=== PATIENT | male | born 1985 | race Caucasian/White ===

== ENCOUNTER 2018-01-27 18:13 | Emergency (ER) | payer OTHER ==
[2018-01-27] MEDS ORDERED: LIDOCAINE 1% MPF 5 ML VIAL ONE (20:05)
--- NOTE | 2018-01-27 20:37 | EDPHYS ---
Physician Documentation [facility] Name: Nahid Leroy Age: 32 yrs Sex: Male : 1985 Arrival Date: 01/27/2018 Time: 18:13 Bed External Waiting Private MD: None, None ED Physician Chidi Mcghee HPI: 01/27 20:12 This 32 yrs old Male presents to ER via Ambulatory with complaints of Finger jr8 Laceration. 20:12 The patient or guardian reports a laceration, irregular, 3 cm(s). The complaints affect jr8 the PIP of right index finger. Context: The problem was sustained at home, resulted from cutting object with knife. Onset: The symptoms/episode began/occurred acutely, today. Modifying factors: The symptoms are alleviated by nothing, the symptoms are aggravated by movement. Associated signs and symptoms: The patient has no apparent associated signs or symptoms. Severity of symptoms: At their worst the symptoms were mild, in the emergency department the symptoms are unchanged. The patient has not experienced similar symptoms in the past. The patient has not recently seen a physician. was trying to cut object and accidently cut index finger . Historical: - Allergies: 18:31 No Known Allergies; lk1 - PMHx: 18:31 None; lk1 - PSHx: 18:31 Tonsillectomy; lk1 - Immunization history:: Adult Immunizations up to date, Last tetanus immunization: unknown. - Social history:: Smoking status: Patient/guardian denies using tobacco. - Ebola Screening: : No symptoms or risks identified at this time. ROS: 20:12 Eyes: Negative for injury, pain, redness, and discharge, ENT: Negative for injury, jr8 pain, and discharge, Neck: Negative for injury, pain, and swelling, Cardiovascular: Negative for chest pain, palpitations, and edema, Respiratory: Negative for shortness of breath, cough, wheezing, and pleuritic chest pain, Abdomen/GI: Negative for abdominal pain, nausea, vomiting, diarrhea, and constipation, Back: Negative for injury and pain, Skin: Negative for injury, rash, and discoloration, Neuro: Negative for headache, weakness, numbness, tingling, and seizure. 20:12 MS/extremity: Positive for laceration. Exam: 20:12 Cardiovascular: Regular rate and rhythm with a normal S1 and S2. No gallops, murmurs, jr8 or rubs. Normal PMI, no JVD. No pulse deficits. Respiratory: Lungs have equal breath sounds bilaterally, clear to auscultation and percussion. No rales, rhonchi or wheezes noted. No increased work of breathing, no retractions or nasal flaring. MS/ Extremity: Pulses equal, no cyanosis. Neurovascular intact. Full, normal range of motion. Neuro: Awake and alert, GCS 15, oriented to person, place, time, and situation. Cranial nerves II-XII grossly intact. Motor strength 5/5 in all extremities. Sensory grossly intact. Cerebellar exam normal. Normal gait. 20:12 Skin: injury, laceration(s), the wound is approximately 3 cm(s), with a depth of .5 cm(s), of the PIP of right index finger, that can be described as no foreign body, irregular, without bleeding. Vital Signs: 18:32 BP 148 / 93; Pulse 90; Resp 15; Temp 98.0(TE); Pulse Ox 98% on R/A; Weight 124.74 kg lk1 (R); Height 6 ft. 2 in. (187.96 cm) (R); Pain 0/10; 20:52 BP 138 / 89; Pulse 73; Resp 18; Temp 97.6; Pulse Ox 97% on R/A; Pain 0/10; fu 18:32 Body Mass Index 35.31 (124.74 kg, 187.96 cm) lk1 Laceration: 20:33 Wound Repair of 3cm ( 1.2in ) subcutaneous laceration to PIP of right index finger. jr8 Irregularly shaped.. Minimal bleeding noted.. Distal neuro/vascular/tendon intact. Anesthesia: Digital block administered with 3 mls of 1% lidocaine. Wound prep: Extensive cleansing with betadine, Wound irrigation with saline, Wound explored extensively. Skin closed with 6 4-0 Prolene using interrupted sutures and sterile technique. Patient tolerated well. MDM: 19:34 Patient medically screened. jr8 20:37 Data reviewed: vital signs, nurses notes, and as a result, I will discharge patient. jr8 Data interpreted: Pulse oximetry: on room air is 98 %. Interpretation: normal. Counseling: I had a detailed discussion with the patient and/or guardian regarding: the historical points, exam findings, and any diagnostic results supporting the discharge/admit diagnosis, the need for outpatient follow up, a family practitioner, to return to the emergency department if symptoms worsen or persist or if there are any questions or concerns that arise at home. 01/27 20:01 Order name: Prolene, Sutures; Complete Time: 2001/27 20:01 Order name: Dressing - Wound; Complete Time: 01/27 20:01 Order name: Gloves, Sterile; Complete Time: 01/27 20: Order name: Setup Suture Tray; Complete Time: Administered Medications: 20:41 Drug: Lidocaine (1 %) 1 vials {Note: administered by provider to affected area.} bb Volume: 20 ml; Route: Infiltration; 20:56 Drug: Tetanus-Diphtheria Toxoid Adult 0.5 ml {[employer]: [employer]. Exp: bb 03/31/2020. Lot #: [id number]. } Route: IM; Site: right deltoid; Disposition: 01/28 08:04 Co-signature as Attending Physician, Chidi Mcghee MD I agree with the assessment and wa plan of care. Disposition: 01/27/18 20:37 Discharged to Home. Impression: Laceration without foreign body of finger without damage to nail. - Condition is Stable. - Discharge Instructions: Laceration Care, Adult. - Prescriptions for Keflex 500 mg Oral Capsule - take 1 capsule by ORAL route every 8 hours for 5 days; 15 capsule. - Medication Reconciliation Form, Thank You Letter, Antibiotic Education, Prescription Opioid Use form. - Follow up: Private Physician; When: 7 - 10 days; Reason: Wound Recheck, Recheck today's complaints, Continuance of care, Staple/Suture removal, Re-evaluation by your physician. - Problem is new. - Symptoms have improved. Signatures: Klaudia Solitario RN RN bb Torrey Jolly PA PA jr8 Akua Boyd RN RN lk1 Chidi Mcghee MD MD ny Corrections: (The following items were deleted from the chart) 01/27 21:22 20:37 01/27/2018 20:37 Discharged to Home. Impression: Laceration without foreign body bb of finger without damage to nail. Condition is Stable. Forms are Medication Reconciliation Form, Thank You Letter, Antibiotic Education, Prescription Opioid Use. Follow up: Private Physician; When: 7 - 10 days; Reason: Wound Recheck, Recheck today's complaints, Continuance of care, Staple/Suture removal, Re-evaluation by your physician. Problem is new. Symptoms have improved. jr8
--- NOTE | 2018-01-27 20:37 | ER ---
Nurse's Notes [facility] Name: Nahid Leroy Age: 32 yrs Sex: Male : 1985 Arrival Date: 01/27/2018 Time: 18:13 Bed External Waiting Private MD: None, None Diagnosis: Laceration without foreign body of finger without damage to nail Presentation: 01/27 18:30 Presenting complaint: Patient states: "I cut my finger (right index) with a knife.". lk1 Transition of care: patient was not received from another setting of care. Onset of symptoms was January 27, 2018 at 16:45. Risk Assessment: Do you want to hurt yourself or someone else? Patient reports no desire to harm self or others. Initial Sepsis Screen: Does the patient meet any 2 criteria? No. Patient's initial sepsis screen is negative. Does the patient have a suspected source of infection? No. Patient's initial sepsis screen is negative. Care prior to arrival: None. 18:30 Method Of Arrival: Ambulatory lk1 18:30 Acuity: TREY 4 lk1 Historical: - Allergies: 18:31 No Known Allergies; lk1 - PMHx: 18:31 None; lk1 - PSHx: 18:31 Tonsillectomy; lk1 - Immunization history:: Adult Immunizations up to date, Last tetanus immunization: unknown. - Social history:: Smoking status: Patient/guardian denies using tobacco. - Ebola Screening: : No symptoms or risks identified at this time. Screenin:40 Abuse screen: Denies threats or abuse. Nutritional screening: No deficits noted. bb Tuberculosis screening: No symptoms or risk factors identified. Fall Risk None identified. Assessment: 19:40 General: Appears in no apparent distress. Behavior is calm, cooperative. Pain: bb Complains of pain in PIP of right index finger. Neuro: Level of Consciousness is awake, alert, obeys commands, Oriented to person, place, time, situation. Cardiovascular: No deficits noted. Respiratory: Respiratory effort is even, unlabored. GI: No signs and/or symptoms were reported involving the gastrointestinal system. Derm: Wound noted PIP of right index finger. Musculoskeletal: Circulation, motion, and sensation intact. 21:00 Reassessment: Patient and/or family updated on plan of care and expected duration. Pain bb level reassessed. Patient is alert, oriented x 3, equal unlabored respirations, skin warm/dry/pink. bandage to right index finger in place, pt verbalized understanding of and agrees to plan of care, discharge instructions given pt ambulated with steady gait to exit accompanied by family. Vital Signs: 18:32 BP 148 / 93; Pulse 90; Resp 15; Temp 98.0(TE); Pulse Ox 98% on R/A; Weight 124.74 kg lk1 (R); Height 6 ft. 2 in. (187.96 cm) (R); Pain 0/10; 20:52 BP 138 / 89; Pulse 73; Resp 18; Temp 97.6; Pulse Ox 97% on R/A; Pain 0/10; fu 18:32 Body Mass Index 35.31 (124.74 kg, 187.96 cm) lk1 ED Course: 18:13 Patient arrived in ED. mr 18:14 None, None is Private Physician. mr 18:31 Triage completed. lk1 18:35 Arm band placed on right wrist. lk1 19:34 [facility] jr8 19:34 Chidi Mcghee MD is Attending Physician. jr8 19:40 Patient has correct armband on for positive identification. Adult w/ patient. bb 19:40 Patient did not have IV access during this emergency room visit. bb 20:45 Assist provider with laceration repair on PIP of right index finger using sutures. Set bb up tray. Performed by Torrey FLANNERY Patient tolerated well. Administered Medications: 20:41 Drug: Lidocaine (1 %) 1 vials {Note: administered by provider to affected area.} bb Volume: 20 ml; Route: Infiltration; 20:56 Drug: Tetanus-Diphtheria Toxoid Adult 0.5 ml {Radiology Orderly: [employer]. Exp: bb 03/31/2020. Lot #: [id number]. } Route: IM; Site: right deltoid; Outcome: 20:37 Discharge ordered by . jr8 21:21 Discharged to home ambulatory. bb 21:21 Condition: stable 21:21 Discharge instructions given to patient, Instructed on discharge instructions, follow up and referral plans. medication usage, wound care, Demonstrated understanding of instructions, follow-up care, medications, wound care, Prescriptions given X 1. 21:22 Patient left the ED. bb Signatures: Oneida Salinas Brenda, RN RN bb Torrey Jolly PA PA jr8 Akua Boyd, RN RN lk1 Price Kaur, RN RN fu
[2018-01-27] MEDS ORDERED: TETANUS & DIPHTHERIA TOX,ADULT 0.5 ML VIAL ONE (20:44)
== END 2018-01-27 21:22 | disposition home or self-care (01) ==
LOC: ER 18:13
PROC: 0JQJ0ZZ Repair Right Hand Subcutaneous Tissue and Fascia, Open Approach (ICD-10-PCS; principal; 2018-01-27)
DX: S61.210A Laceration without foreign body of right index finger without damage to nail, initial encounter (principal); W26.0XXA Contact with knife, initial encounter; Y93.9 Activity, unspecified; Y92.019 Unspecified place in single-family (private) house as the place of occurrence of the external cause
CPT/HCPCS: 90714; 99283